=== PATIENT | male | born 1995 | race Hispanic/Latino ===

== ENCOUNTER → 2020-01-16 | Day surgery (SDC) | payer OTHER ==
[2020-01-10 16:45] LABS: BASOPHILS % 0.4 % (0.0-1.0); EOSINOPHILS # (AUTO) 0.2 (0.0-0.4); EOSINOPHILS % 2.4 % (0.0-6.0); HEMATOCRIT 47.1 % (38.2-49.6); HEMOGLOBIN 16.8 g/dL (14.0-18.0); LYMPHOCYTES # (AUTO) 2.5 (1.0-3.2); LYMPHOCYTES % 29.4 % (18.0-39.1); MEAN CORPUSCULAR HEMOGLOBIN 28.8 pg (28-32); MEAN CORPUSCULAR HGB CONC 35.7 g/dL (31-35); MEAN CORPUSCULAR VOLUME 80.7 fL (81-99); MONOCYTES # (AUTO) 0.7 (0.2-0.8); MONOCYTES % 8.3 % (4.4-11.3); NEUTROPHILS % 59.1 % (38.7-80.0); PLATELET COUNT 277 x10e3/uL (140-360); RED BLOOD COUNT 5.84 x10e6/uL (4.3-5.7)
[2020-01-10 17:04] LABS: BLOOD UREA NITROGEN 8 mg/dL (7-26); BUN/CREATININE RATIO 8 (6-25); CALCIUM 9.6 mg/dL (8.4-10.2); CARBON DIOXIDE 27 mmol/L (22-29); CHLORIDE 101 mmol/L (98-107); CREATININE, SERUM 0.96 mg/dL (0.72-1.25); EST GLOMERULAR FILTRATION RATE > 60 ML/MIN (60-); GLUCOSE 280 mg/dL (74-118); SODIUM 135 mmol/L (136-145)
[~2020-01-16] MED LIST: ACETAMINOPHEN 1000 MG/100 ML IV ONE; ACETAMINOPHEN/CODEINE 300MG - 30MG TAB ONE; BUPIVACAINE 0.25% 30ML SDV INJ ONE; CEFTRIAXONE SOD 1 GM/NS 50 ML 50 ML IV ONE; CEPHALEXIN500 MG PO; DEXAMETHASONE SOD PHOS INJ 4 MG/ML VIAL ONE; FENTANYL CITRATE/PF 100MCG/2 ML INJ ONE; INSULIN REGULAR, HUMAN 100 UNIT/1 ML 3ML VIAL ONE; KETAMINE HCL INJ 50 MG/ML 10 ML VIAL ONE; LIDOCAINE HCL 2% LOCAL INJ 5 ML SDV VIAL INJ ONE; METFORMIN HCL500 MG PO; MIDAZOLAM HCL 2 MG/2 ML VIAL ONE; ONDANSETRON HCL INJ 2MG/ML 2ML 2 MG/ML VIAL ONE; PROPOFOL IV EMULSION 10 MG/ML 20 ML VIAL ONE; SEVOFLURANE INHAL SOLN 250 ML PEN BTL ONE
[2020-01-16 12:30] VITALS: BP 112/70
--- OUTSIDE RECORDS SUMMARY | 2020-01-17 12:45 | XMS REPORT ---
Author Author [facility] Address Unknown Phone Unavailable Care Team Providers Care Freight Adjuster Name Role Phone Unavailable Unavailable Problems This patient has no known problems. Allergies, Adverse Reactions, Alerts This patient has no known allergies or adverse reactions. Medications This patient has no known medications. Encounters Start Date/Time End Date/Time Encounter Type Admission Type Attending [facility] Care Facility Care Department Encounter ID 2019-12-01 22:01:00 2019-12-01 22:01:00 Emergency E [id number]
--- NOTE | 2020-01-26 16:12 | Operative Report ---
DATE OF PROCEDURE: 01/16/2020 SURGEON: Sebastian Morgan MD PREOPERATIVE DIAGNOSIS: Recurrent balanitis with mild phimosis. POSTOPERATIVE DIAGNOSIS: Recurrent balanitis with mild phimosis. OPERATIVE PROCEDURE PERFORMED: Circumcision. ANESTHESIA: General anesthesia. ESTIMATED BLOOD LOSS: Minimal. INDICATIONS: Mr. Jericho Arriaga is a 24-year-old male with a history of recurrent balanitis and mild phimosis. He now presents for definitive surgical management of this problem. PROCEDURE IN DETAIL: The patient was brought into the operating room, placed in supine position. After administration of general anesthesia, he was prepped and draped in usual sterile fashion. With the preputial skin in its normal anatomical position, a circumferential incision was made at the level of the sahni. The foreskin was then retracted with moderate difficulty and a 2nd parallel circumferential incision was made 5 mm proximal to the sahni. The intervening tissue between these two incisions was removed and hemostasis obtained using electrocautery device. Once adequate hemostasis was secured, the skin edges were reapproximated and closed using interrupted chromic stitches. Penile block was then performed using 0.25% plain Marcaine. The wound was then cleaned and dried and covered with Mastisol and circumferential Tegaderm dressing. Anesthesia was reversed and the patient was transferred to a bed and taken to the postanesthesia care unit in good condition. Of note, the needle and instrument count were correct at the conclusion of the case. Sebastian Morgan MD HLW/MODL /[id number]
== END | disposition home or self-care (01) ==
LOC: OR 12:42
PROVIDERS: ATTEND Urology
DX: N47.1 Phimosis (principal); N48.1 Balanitis; Z01.812 Encounter for preprocedural laboratory examination; E11.9 Type 2 diabetes mellitus without complications; Z79.84 Long term (current) use of oral hypoglycemic drugs; Z91.19 Patient's noncompliance with other medical treatment and regimen; R23.4 Changes in skin texture
CPT/HCPCS: 36415 ×2; 54161; 80048; 82948; 85025; 88304; J0131; J0696; J1100; J2001; J2250; J2405; J2704; J3010; J1817